=== PATIENT | male | born 1980 | race Caucasian/White ===

== ENCOUNTER 2020-10-17 12:38 | Day surgery (SDC) | payer BC ==
[2020-10-15 14:38] LABS: Absolute Lymphocytes (CBC) 2.1 K/uL (0.7-4.9); Basophils % 0.5 % (0-1.3); Hematocrit 46.4 % (39.6-49.0); Lymphocytes % 18.2 % (15.3-44.8); MPV 9.7 fL (7.6-11.3); RBC Red Blood Cell Count 5.47 M/uL (4.33-5.43)
[2020-10-15 14:42] LABS: Protime INR 0.93
[2020-10-15 14:58] LABS: Potassium 4.1 mmol/L (3.5-5.1)
--- NOTE | 2020-10-15 15:33 | RAD REPORT ---
EXAM DESCRIPTION: RAD - Chest Pa And Lat (2 Views) - 10/15/2020 2:18 pm CLINICAL HISTORY: left heart cath, pending cardiac catheterization COMPARISON: Two view chest October 2012 TECHNIQUE: Frontal and lateral views of the chest were obtained. FINDINGS: The lungs are clear. Heart size is normal and central vasculature is within normal limit s. No pleural effusion or pneumothorax seen. No acute bony finding noted. No aortic abnormality. IMPRESSION: No acute cardiopulmonary process. No significant change from comparison study.
[~2020-10-17 12:38] MED LIST: HEPA 1000U/500MLS 2,000 UNIT/1,000 ML BAG IV ONE
[2020-10-17] MEDS ORDERED: NA CHLORIDE 0.9% 500 ML ONE (13:04)
[2020-10-17] MEDS ORDERED: HEPA 1000U/500MLS 1,000 UNIT/500 ML BAG IV ONE (15:12)
[2020-10-17] MEDS ORDERED: HEPARIN 5000 UNIT/ML 1 ML VIAL ONE (15:13)
[2020-10-17] MEDS ORDERED: FENTANYL CITR 100 MCG/2 ML ONE (15:13)
[2020-10-17] MEDS ORDERED: VERAPAMIL HCL 10 MG/4 ML VIAL IV ONE (15:13)
[2020-10-17] MEDS ORDERED: MIDAZOLAM HCL 2 MG/2 ML INJ ONE ×2 (15:13→15:45)
[2020-10-17] MEDS ORDERED: ATROPINE SULF 1 MG/10 ML SYR IV ONE (15:14)
[2020-10-17 16:52] VITALS: TEMP 97.4
[2020-10-17] MEDS ORDERED: ACETAMINOPHEN 325 MG TABLET ONE (17:46)
--- NOTE | 2020-10-17 20:10 | RAD REPORT ---
EXAM DESCRIPTION: US - Upper Ext Artery Uni Daniel - 10/17/2020 7:47 pm CLINICAL HISTORY: radial heart cath Arm pain COMPARISON: No comparisons FINDINGS: No significant flow abnormality is seen involving the right upper extremity arterial syste m. No occlusion or stenosis is seen. Waveforms and amplitude are within normal limits. IMPRESSION: Negative study
[2020-10-17 20:20] VITALS: O2SAT 97
[2020-10-17 20:22] VITALS: BP 118/87
--- NOTE | 2020-10-17 22:43 | OP ---
Date of Procedure: 10/17/2020 Surgeon: LAURY TRIMBLE Procedure Performed: 1.Selective coronary angiogram. 2.Left heart catheterization. Indication: New drop of ejection fraction, EF of 30% with chest pain and unstable angina. Access: Right radial artery 6-Fijian, closed with TR band. Complications: None. Bleeding: Less than 5 mL. Description Of Procedure: After risks, benefits, and alternatives were explained, the patient agreed to proceed and signed informed consent. The patient was brought into the cardiac catheterization la boratory, prepped and draped in usual sterile fashion. Then, we accessed right radial artery using [employer] micropuncture kit and then we placed a 6-Fijian slender sheath and took a 5-Fijian [place] 4 c atheter into the aortic root, engaged left main and the right coronary artery and took standard views , and then the catheter was pushed over J-wire into the left ventricle across the aortic valve and re corded the LVEDP and then upon pullback. There was no gradient and no difference in pressure. I the n removed the catheter and the wire the sheath was removed and placed TR band with good hemostasis. Findings: 1.Left main is large and normal. 2.LAD normal. 3.Left circumflex is normal. 4.RCA is dominant and is normal. 5.LVEDP of 11 mmHg. Conclusion. Normal: 1.Coronary arteries. 2.Nonischemic cardiomyopathy. 3.Normal LVEDP. Recommendations: 1.Guideline directed medical therapy of heart failure. 2.Discharge home once criteria are met and followup with me within 1 week post discharge. SR/MODL Voice ID: [id number] Report ID: [id number]
== END 2020-10-17 20:25 | disposition home or self-care (01) ==
LOC: CCL 12:38
PROVIDERS: ATTEND Internal Medicine
DX: R07.9 Chest pain, unspecified (principal); I42.8 Other cardiomyopathies; I11.0 Hypertensive heart disease with heart failure; I50.20 Unspecified systolic (congestive) heart failure; Z20.822 Contact with and (suspected) exposure to COVID-19; Z88.0 Allergy status to penicillin
CPT/HCPCS: 85025; 80048; 36415; 85610; 85730; 71046; 93458; 93931; U0003; C1893; J1644 ×3; J2250 ×2; J3010; J7040